=== PATIENT | male | born 1990 | race Caucasian/White ===

== ENCOUNTER 2017-09-25 09:35 | Emergency (ER) | payer OTHER ==
[2017-09-25 09:44] VITALS: PULSE 57
[2017-09-25] MEDS ORDERED: NS 1,000 ML IV ONE (10:07)
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
[2017-09-25 11:08] VITALS: BP 124/69; RESP 18; TEMP 97.9; O2SAT 99
== END 2017-09-25 11:08 | disposition home or self-care (01) ==
DX: E86.0 Dehydration (principal); E86.9 Volume depletion, unspecified